=== PATIENT | female | born 1965 | race Caucasian/White ===

== ENCOUNTER 2016-06-07 10:43 | Emergency (ER) | payer SELFPAY ==
[~2016-06-07] VITALS: Ht 165.1 cm; Wt 81.6 kg
[~2016-06-07 10:43] MED LIST: CHOL500015 PO; Fentanyl TD; GABA-586 PO; LEVO112T4 PO; LEVO25TA4 PO; METH4TAB PO; Oxycodone Hcl/Acetaminophen PO
[2016-06-07 10:55] VITALS: BP 131/60
--- NOTE | 2016-06-07 11:35 | RAD ---
Right foot radiographs History: Right foot pain injury previous day, pain. Comparison: None. Findings: No acute fracture or dislocation is identified. Minimal plantar calcaneal and Achilles tendon insertional enthesophytes are seen. Impression: No acute osseous traumatic injury identified.
[2016-06-07] MEDS ORDERED: HYDR-971 PO (11:36)
--- NOTE | 2016-06-07 11:37 | PHYS DOC ---
Past Medical History Past Medical History: Hypothyroid, Other Additional Past Medical Histor: ALOPECIA Past Surgical History: Appendectomy, Cholecystectomy, Other Additional Past Surgical Histo: R SHOULDER, R ELBOW, R ACHILLES Alcohol Use: Rarely Drug Use: None Adult General Chief Complaint Chief Complaint: FOOT INJURY PAIN [facility] HPI Patient is a 50 year old female presents to the department stating that she has a history of a right ruptured Achilles tendon. She states that this occurred approximately 2 months ago in which she had surgery for the repair. She states that she is continuing to go through physical therapy. She states that [facility] with her child he was dying and she states that she was up on the bed and when she went to step down off the bed she heard a rubber band pop. She states she had intense pain in her right Achilles tendon area. The Achilles area is red and tender and warm to touch. Patient has increased pain and discomfort with trying to point and flex the toe. She does have increased pain up into the calf area. Review of Systems Review of Systems Constitutional: Denies fever or chills [] Eyes: Denies change in visual acuity, redness, or eye pain [] HENT: Denies nasal congestion or sore throat [] Respiratory: Denies cough or shortness of breath [] Cardiovascular: No additional information not addressed in HPI [] GI: Denies abdominal pain, nausea, vomiting, bloody stools or diarrhea [] : Denies dysuria or hematuria [] Musculoskeletal: Denies back pain. Pain to the right Achilles tendon Integument: Denies rash or skin lesions [] Neurologic: Denies headache, focal weakness or sensory changes [] Endocrine: Denies polyuria or polydipsia [] Allergies Allergies Allergies Coded Allergies Type Severity Reaction Last Updated Verified codeine Allergy Intermediate 06/07/16 No ketorolac Allergy Intermediate 06/07/16 No propoxyphene Allergy Intermediate 06/07/16 Yes rofecoxib Allergy Intermediate lower bp 06/07/16 Yes tramadol Allergy Intermediate 06/07/16 No Physical Exam Physical Exam Constitutional: Well developed, well nourished, no acute distress, non-toxic appearance. [] HENT: Normocephalic, atraumatic, bilateral external ears normal, oropharynx moist, no oral exudates, nose normal. [] Eyes: PERRLA, EOMI, conjunctiva normal, no discharge. [] Neck: Normal range of motion, no tenderness, supple, no stridor. [] Cardiovascular:Heart rate regular rhythm Lungs & Thorax: no respiratory distress Skin: Warm, dry, no erythema, no rash. [] Back: No tenderness] Extremities: Right Achilles tenderness, redness swelling and pain, she does have pain that extends up into the calf area. No cyanosis, no clubbing, ROM intact, no edema. [] Neurologic: Alert and oriented X 3, normal motor function, normal sensory function, no focal deficits noted. [] Psychologic: Affect normal, judgement normal, mood normal. [] Current Patient Data Vital Signs Vital Signs Date Time Temp Pulse Resp B/P Pulse Ox O2 Delivery O2 Flow Rate FiO2 06/07/16 10:55 98.0 85 16 97 Room Air 98.0 EKG EKG [] Radiology/Procedures Radiology/Procedures [] Course & Med Decision Making Course & Med Decision Making Pertinent Labs and Imaging studies reviewed. (See chart for details) Dr Miranda in to evaluate patient. Spoke with Dr. Kang the orthopedic who requested the patient be placed in a short leg posterior splint with dorsiflexion. Recommended crutches. Patient will be discharged home in stable condition signs and symptoms to return back to emergency department as been provided. Patient may use Tylenol or ibuprofen for pain and discomfort. We'll provide her with of ear pain and discomfort. Patient was instructed this medication will cause drowsiness do not take any be alert and oriented. Patient agrees with discharge instructions, treatment regimens and follow-up recommendations. [] Dragon Disclaimer Dragon Disclaimer This electronic medical record was generated, in whole or in part, using a voice recognition dictation system. Departure Departure Impression: Primary Impression: Achilles rupture, right Disposition: 01 HOME, SELF-CARE Condition: STABLE Referrals: RAMÓN MELISSA (PCP) STARR KANG MD Patient Instructions: Achilles Tendon Rupture (Complete), Care After, Crutch Use, [id number], Splint Care, [id number] Additional Instructions: Activity as tolerated. You may take Tylenol or ibuprofen for pain and discomfort. If he take ibuprofen make sure you eat when taking this medication as it may cause an upset stomach. Hydrocodone will cause drowsiness do not take any be alert and oriented. Ice packs on 20 minutes off 20 minutes several times a day. Elevation as much as possible. Keep the splint clean and dry. No weightbearing on the right foot she may use crutches to help with ambulation. Follow-up with orthopedic in the next 5-7 days. Return back to emergency prior signs symptoms become worse. Scripts Hydrocodone/Apap 5-325 ([place] 5-325 Tablet)1 Each Tablet1 Tab PO PRN Q6HRS PRN PAIN #10 TAB Prov:JASVIR HERNANDEZ NP 06/07/16 Splinting Splinting : Location: left posterior short leg Hand-Made Type: orthoglass Splint: left posterior short leg in dorsiflexion Pre-Proc Neuro Vasc Exam: normal Post-Proc Neuro Vasc Exam: normal JASVIR HERNANDEZ NP Jun 07, 2016 11:37
== END 2016-06-07 12:15 | disposition home or self-care (01) ==
LOC: ER 10:43
DX: S86.011A Strain of right Achilles tendon, initial encounter (principal); E03.9 Hypothyroidism, unspecified; Z88.8 Allergy status to other drugs, medicaments and biological substances; Z88.5 Allergy status to narcotic agent; X58.XXXA Exposure to other specified factors, initial encounter; Y93.89 Activity, other specified; Y92.239 Unspecified place in hospital as the place of occurrence of the external cause; Y99.8 Other external cause status
CPT/HCPCS: 29515; 73630; 99284-25

== ENCOUNTER 2016-12-13 12:27 | Emergency (ER) | payer SELFPAY ==
[~2016-12-13] VITALS: Ht 165.1 cm; Wt 81.6 kg
[~2016-12-13 12:27] MED LIST changes: -CHOL500015 PO; +CHOL500045 PO; +HYDR-971 PO
[2016-12-13 13:10] VITALS: BP 149/86
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
[2016-12-13] MEDS: HYDROcodone/APAP 5/325MG 1 TAB TABLET PO ONE ×2 (13:40→13:41)
[2016-12-13] MEDS ORDERED: IBUP-1060 PO (13:42)
[2016-12-13] MEDS ORDERED: HYDR-971 PO (13:42)
== END 2016-12-13 13:48 | disposition home or self-care (01) ==
LOC: ER 12:27
DX: R10.32 Left lower quadrant pain (principal); E03.9 Hypothyroidism, unspecified; Z90.49 Acquired absence of other specified parts of digestive tract; Z88.8 Allergy status to other drugs, medicaments and biological substances; Z88.5 Allergy status to narcotic agent
CPT/HCPCS: 73502; 99284